=== PATIENT | female | born 1945 | race Caucasian/White ===

== ENCOUNTER → 2016-04-28 | Outpatient (CLI) | payer MEDICARE, OTHER | LOC: WI 13:26 | PROVIDERS: ATTEND Family Medicine | DX: Z12.31 Encounter for screening mammogram for malignant neoplasm of breast (principal); M89.9 Disorder of bone, unspecified | CPT/HCPCS: 77080; G0202; 77067 ==

== ENCOUNTER 2017-07-29 12:23 | Emergency (ER) | payer MEDICARE, OTHER ==
[2017-07-29] MEDS ORDERED: DIPHENHYDRAMINE HCL 50 MG/ML VIAL IV ONE (13:28)
[2017-07-29] MEDS ORDERED: KETOROLAC TROMETHAMINE INJ/PF 30 MG/1 ML SDV IV ONE (13:28)
[2017-07-29] MEDS ORDERED: PROCHLORPERAZINE EDISYLATE INJ 10 MG/2 ML VIAL IV ONE (13:29)
--- NOTE | 2017-07-29 13:29 | ER Document Report ---
ED Cardiac <LDBRIGIDA - Last Filed: 07/29/17 14:56> - General Mode of Arrival: Ambulatory Information source: Patient TRAVEL OUTSIDE OF THE [place] IN LAST 30 DAYS: No <GHISLAINE CALLEJAS - Last Filed: 07/29/17 16:35> - General Chief Complaint: Chest Pain Stated Complaint: CHEST PAIN Time Seen by Provider: 07/29/17 13:07 Notes: Patient is a 71 year old female that presents to the emergency department today with complaints of chest pain which began yesterday at 1400. Patient states the pain comes and goes approximately every 30 minutes and when it begins it lasts for approximately around 15 minutes. Patient states the pain seems to radiate to her back and into the left side of her jaw. Patient states that the pain is both relieved and exacerbated with certain positions. Patient also complains of a headache and associated nausea. Patient denies shortness of breath. (GHISLAINE CALLEJAS) - Related Data Allergies/Adverse Reactions: iodine Allergy (Severe, Verified 07/29/17 13:26) Anaphylaxis cefprozil [From Cefzil] Allergy (Intermediate, Verified 07/29/17 13:26) Hives cyclobenzaprine [From Flexeril] Allergy (Intermediate, Verified 07/29/17 13:26) nitrofurantoin [From Macrodantin] Allergy (Intermediate, Verified 07/29/17 13:26 ) Skin Redness ciprofloxacin [From Cipro] Allergy (Mild, Verified 07/29/17 13:26) Migraine clindamycin Allergy (Verified 07/29/17 13:26) methocarbamol [From Robaxin] Allergy (Verified 07/29/17 13:26) Iodinated Contrast- Oral and IV Dye Adverse Reaction (Severe, Verified 07/29/17 13:26) Anaphylaxis povidone-iodine [From Betadine] Adverse Reaction (Severe, Verified 07/29/17 13: 26) Blisters soap [From Betadine] Adverse Reaction (Severe, Verified 07/29/17 13:26) Blisters erythromycin base Adverse Reaction (Intermediate, Verified 07/29/17 13:26) Hives Past Medical History - General Information source: Patient - Social History Smoking Status: Never Smoker Cigarette use (# per day): No Chew tobacco use (# tins/day): No Frequency of alcohol use: None Drug Abuse: None Lives with: Family Family History: Reviewed & Not Pertinent Patient has suicidal ideation: No Patient has homicidal ideation: No Pulmonary Medical History: Reports: Hx Asthma Neurological Medical History: Reports: Hx Migraine Renal/ Medical History: Denies: Hx Peritoneal Dialysis GI Medical History: Reports: Hx Gastroesophageal Reflux Disease Psychiatric Medical History: Reports: Hx Depression Past Surgical History: Reports: Hx Hysterectomy, Hx Orthopedic Surgery - back/7 screws R leg/R arm 12 screws <GHISLAINE CALLEJAS Filed: 07/29/17 16:35> Review of Systems - Review of Systems Constitutional: No symptoms reported EENT: No symptoms reported Cardiovascular: See HPI, Chest pain Respiratory: No symptoms reported Gastrointestinal: No symptoms reported Genitourinary: No symptoms reported Female Genitourinary: No symptoms reported Musculoskeletal: No symptoms reported Skin: No symptoms reported Hematologic/Lymphatic: No symptoms reported Neurological/Psychological: See HPI, Headaches <GHISLAINE CALLEJAS Filed: 07/29/17 16:35> Physical Exam - Vital signs Interpretation: Normal - General General appearance: Appears well, Alert - HEENT Head: Normocephalic, Atraumatic Eyes: Normal Pupils: PERRL Neck: Other - left posterior cervical musculature tenderness with palpation, left trapezius tenderness with palpation - Respiratory Respiratory status: No respiratory distress Chest status: Tender - left anterior chest wall tenderness mid-clavicle Breath sounds: Normal Chest palpation: Normal - Cardiovascular Rhythm: Regular Heart sounds: Normal auscultation Murmur: No - Abdominal Inspection: Normal Distension: No distension Bowel sounds: Normal Tenderness: Nontender Organomegaly: No organomegaly - Back Back: Tender - left medial scapula tenderness with palpation - Extremities General upper extremity: Normal inspection, Nontender, Normal color, Normal ROM , Normal temperature General lower extremity: Normal inspection, Nontender, Normal color, Normal ROM , Normal temperature, Normal weight bearing. No: Katlyn's sign - Neurological Neuro grossly intact: Yes Cognition: Normal Orientation: AAOx4 [place] Coma Scale Eye Opening: Spontaneous Geovany Coma Scale Verbal: Oriented [place] Coma Scale Motor: Obeys Commands [place] Coma Scale Total: 15 Speech: Normal Motor strength normal: LUE, RUE, LLE, RLE Sensory: Normal - Psychological Associated symptoms: Normal affect, Normal mood - Skin Skin Temperature: Warm Skin Moisture: Dry Skin Color: Normal <GHISLAINE CALLEJAS - Last Filed: 07/29/17 16:35> - Vital signs Vitals: Temp Pulse Resp BP Pulse Ox 98.8 F 97 18 155/76 H 94 07/29/17 12:50 07/29/17 12:50 07/29/17 12:50 07/29/17 12:50 07/29/17 12:50 Course - Laboratory Result Diagrams: 07/29/17 13:04 07/29/17 13:04 - Diagnostic Test Radiology reviewed: Image reviewed, Reports reviewed - Mild bibasilar atelectasis - EKG Interpretation by Id EKG shows normal: Sinus rhythm, [place], Intervals, QRS Complexes. abnormal: ST-T Waves - Nonspecific anterolateral T abnormalities Rate: Normal - 99 Rhythm: NSR <BRIGIDA JAFFE - Last Filed: 07/29/17 14:56> - Laboratory Result Diagrams: 07/29/17 13:04 07/29/17 13:04 <GHISLIANE CALLEJAS - Last Filed: 07/29/17 16:35> - Vital Signs Vital signs: Temp Pulse Resp BP Pulse Ox 98.8 F 97 10 L 144/74 H 95 07/29/17 12:50 07/29/17 12:50 07/29/17 14:01 07/29/17 14:01 07/29/17 15:00 - Laboratory Laboratory results interpreted by co: 07/29/17 07/29/17 07/29/17 13:04 13:04 14:22 RDW 14.1 H Glucose 141 H Urine Urobilinogen 2.0 H Discharge <BRIGIDA JAFFE - Last Filed: 07/29/17 14:56> <GHISLAINE CALLEJAS - Last Filed: 07/29/17 16:35> - Discharge Clinical Impression: Anterior chest wall pain Muscle strain of left scapular region Qualifiers: Encounter type: initial encounter Qualified Code(s): S46.912A - Strain of unspecified muscle, fascia and tendon at shoulder and upper arm level, left arm , initial encounter Condition: Stable Disposition: HOME, SELF-CARE Additional Instructions: Chest Wall Pain: Your chest pain has been diagnosed as coming from the chest wall. This is often caused by straining the muscles or joints in the chest during physical activity, direct trauma, coughing, or vigorous vomiting. Occasionally, no cause can be found. Rest from strenuous physical activity. This kind of chest pain is usually made worse by movement of the chest. Depending on the symptoms, we may prescribe medicine for pain, muscle relaxation, and antiinflammatory effects. If the pain is new, and seems to be due to muscle strain, cold packs can help. Otherwise, apply gentle warmth to the painful area for 15 minutes every hour or two. You should contact the doctor immediately if things change. Further evaluation is needed if you develop a fever or cough, if the nature of the pain changes, or if you become short of breath. Your EKG, chest x-ray, lab work and heart muscle enzymes were unremarkable. Your exam suggests that your discomfort is coming from the muscles around her left scapula, left shoulder neck and left anterior chest. You should continue taking your regular medications and rest over the next few days. Follow-up with your primary care provider if not improving. RETURN TO THE EMERGENCY ROOM IF ANY NEW OR WORSENING SYMPTOMS. Referrals: YARED HAGER MD [Primary Care Provider] - Follow up as needed Scribe Attestation: 07/29/17 14:07 I personally performed the services described in the documentation, reviewed and edited the documentation which was dictated to the scribe in my presence, and it accurately records my words and actions. (BRIGIDA JAFFE) Scribe Documentation - Scribe Written by Cayla:: Cayla Alva, 07/29/2017 1634 acting as scribe for :: Ld <GHISLAINE CALLEJAS - Last Filed: 07/29/17 16:35>
[2017-07-29 14:12] LABS: ABSOLUTE BASOPHILS # (AUTO) 0.1 10^3/uL (0.0-0.2); ABSOLUTE EOSINOPHILS # (AUTO) 0.3 10^3/uL (0.0-0.6); ABSOLUTE LYMPHOCYTES (AUTO) 2.5 10^3/uL (0.5-4.7); ABSOLUTE MONOCYTES (AUTO) 0.6 10^3/uL (0.1-1.4); ABSOLUTE NEUT (AUTO) 4.3 10^3/uL (1.7-8.2); BASOPHILS % (AUTO) 0.7 % (0-2); EOSINOPHILS % (AUTO) 3.8 % (0-6); HEMATOCRIT 41.3 % (36.0-47.0); HEMOGLOBIN 13.9 g/dL (12.0-15.5); LYMPHOCYTES % (AUTO) 32.2 % (13-45); MEAN CORPUSCULAR HEMOGLOBIN 32.6 pg (27.0-33.4); MEAN CORPUSCULAR HGB CONC 33.7 g/dL (32.0-36.0); MEAN CORPUSCULAR VOLUME 97 fl (80-97); MONOCYTES % (AUTO) 7.2 % (3-13); PLATELET COUNT 258 10^3/uL (150-450); RED BLOOD COUNT 4.28 10^6/uL (3.72-5.28); RED CELL DISTRIBUTION WIDTH 14.1 % (11.5-14.0); SEGMENTED NEUTROPHILS % (AUTO) 56.1 % (42-78); TOTAL CELLS COUNTED % (AUTO) 100 %; WHITE BLOOD COUNT 7.6 10^3/uL (4.0-10.5)
[2017-07-29 14:21] LABS: ALANINE AMINOTRANSFERASE 29 U/L (9-52); ALBUMIN 4.3 g/dL (3.5-5.0); ALKALINE PHOSPHATASE 67 U/L (38-126); ANION GAP 11 (5-19); ASPARTATE AMINO TRANSFERASE 30 U/L (14-36); BILIRUBIN,DIRECT 0.3 mg/dL (0.0-0.4); BILIRUBIN,TOTAL 0.3 mg/dL (0.2-1.3); BLOOD UREA NITROGEN 12 mg/dL (7-20); CALCIUM 9.3 mg/dL (8.4-10.2); CARBON DIOXIDE 29 mmol/L (22-30); CHLORIDE 105 mmol/L (98-107); CREATINE KINASE 92 U/L (30-135); GLUCOSE 141 mg/dL (75-110); POTASSIUM 3.6 mmol/L (3.6-5.0); SODIUM 144.6 mmol/L (137-145); TOTAL PROTEIN 7.3 g/dL (6.3-8.2)
--- NOTE | 2017-07-29 14:22 | RADIOLOGY REPORT (SQ) ---
EXAM DESCRIPTION: CHEST SINGLE VIEW COMPLETED DATE/TIME: 07/29/2017 2:14 pm REASON FOR STUDY: Chest pain COMPARISON: None. EXAM PARAMETERS: NUMBER OF VIEWS: One view. TECHNIQUE: Single frontal radiographic view of the chest acquired. RADIATION DOSE: NA LIMITATIONS: None. FINDINGS: LUNGS AND PLEURA: No opacities, masses or pneumothorax. No pleural effusion. MEDIASTINUM AND HILAR STRUCTURES: No masses. Contour normal. HEART AND VASCULAR STRUCTURES: Heart normal in size. Normal vasculature. BONES: No acute findings. HARDWARE: Spine stimulator. tubing overlying the neck chest and abdomen. Question shunt catheter. OTHER: No other significant finding. IMPRESSION: NO ACUTE RADIOGRAPHIC FINDING IN THE CHEST. TECHNICAL DOCUMENTATION: JOB ID: [id number] [employer]- All Rights Reserved Reading location - IP/workstation name: [email or web address]
[2017-07-29 14:49] LABS: APPEARANCE,URINE SLIGHTLY-CLOUDY; BILIRUBIN,URINE NEGATIVE (NEGATIVE); COLOR,URINE AMBER; GLUCOSE, URINE NEGATIVE (NEGATIVE); KETONES,URINE NEGATIVE (NEGATIVE); LEUKOCYTE ESTERASE,URINE NEGATIVE (NEGATIVE); NITRITE,URINE NEGATIVE (NEGATIVE); PROTEIN,URINE NEGATIVE (NEGATIVE); URINE SPECIFIC GRAVITY 1.024
[2017-07-29 15:21] VITALS: BP 144/74
--- NOTE | 2017-07-29 23:18 | EKG REPORT ---
SEVERITY:- ABNORMAL ECG - SINUS RHYTHM NONSPECIFIC T ABNORMALITIES, ANT-LAT LEADS : Confirmed by: Rocío Fam 29-Jul-2017 23:17:36
== END 2017-07-29 15:29 | disposition home or self-care (01) ==
LOC: EDBD 12:23 → ER 12:23
DX: S46.912A Strain of unspecified muscle, fascia and tendon at shoulder and upper arm level, left arm, initial encounter (principal); R07.89 Other chest pain; R51 Headache; R11.0 Nausea; X58.XXXA Exposure to other specified factors, initial encounter; Z88.3 Allergy status to other anti-infective agents; Z90.710 Acquired absence of both cervix and uterus
CPT/HCPCS: 93005; 99285; 96374; 96375; 36415; 82550; 85025; 80053; 81001; 84484; 71045; 93010; J1200; J1885; J0780

== ENCOUNTER 2019-08-31 13:53 | Emergency (ER) | payer MEDICARE, OTHER ==
--- NOTE | 2019-08-31 15:22 | ER Document Report ---
ED Medical Screen (RME) - General Chief Complaint: Abdominal Pain Stated Complaint: FLANK PAIN Time Seen by Provider: 08/31/19 15:12 Primary Care Provider: YARED HAGER MD [Primary Care Provider] - Follow up as needed Mode of Arrival: Wheelchair Information source: Patient Notes: 74-year-old female presented to ED for complaint of right-sided abdominal pain. She states the pain started about 6 AM. She is had some nausea but no vomiting. She is alert oriented respirations regular nonlabored speaking in full sentences. She does have a history of migraines asthma reflux she has had colonoscopies and endoscopies. She has a history of arthritis in multiple fractures. She states she has had orthopedic surgeries for fractures, gallbladder removed, hysterectomy, and multiple other surgeries. She does have some mild tenderness to the right lower and upper quadrant. She is morbidly obese 4 foot 11 and 86 kg. I have greeted and performed a rapid initial assessment of this patient. A comprehensive ED assessment and evaluation of the patient, analysis of test results and completion of medical decision making process will be conducted by an additional ED providers. TRAVEL OUTSIDE OF THE [place] IN LAST 30 DAYS: No - Related Data Allergies/Adverse Reactions: iodine Allergy (Severe, Verified 08/31/19 15:11) Anaphylaxis cefprozil [From Cefzil] Allergy (Intermediate, Verified 08/31/19 15:11) Hives cyclobenzaprine [From Flexeril] Allergy (Intermediate, Verified 08/31/19 15:11) nitrofurantoin [From Macrodantin] Allergy (Intermediate, Verified 08/31/19 15:11) Skin Redness ciprofloxacin [From Cipro] Allergy (Mild, Verified 08/31/19 15:11) Migraine clindamycin Allergy (Verified 08/31/19 15:11) methocarbamol [From Robaxin] Allergy (Verified 08/31/19 15:11) Iodinated Contrast Media Adverse Reaction (Severe, Verified 08/31/19 15:11) Anaphylaxis povidone-iodine [From Betadine] Adverse Reaction (Severe, Verified 08/31/19 15:11) Blisters soap [From Betadine] Adverse Reaction (Severe, Verified 08/31/19 15:11) Blisters erythromycin base Adverse Reaction (Intermediate, Verified 08/31/19 15:11) Hives tape Adverse Reaction (Uncoded 08/31/19 15:11) Home Medications: ranatadine. cymbalta. advair. folic acid. doxepin. clonozapam. methrotrexate. multivitamin. proair. maxalt. promethazine. miralax. ocycodone. primidone. tizanidine. prednisolone. dorzolamide. vitamin b. magnesium Past Medical History - Social History Chew tobacco use (# tins/day): No Frequency of alcohol use: None Drug Abuse: None Pulmonary Medical History: Reports: Hx Asthma Neurological Medical History: Reports: Hx Migraine Renal/ Medical History: Denies: Hx Peritoneal Dialysis GI Medical History: Reports: Hx Gastroesophageal Reflux Disease Psychiatric Medical History: Reports: Hx Depression Past Surgical History: Reports: Hx Hysterectomy, Hx Orthopedic Surgery - back/7 screws R leg/R arm 12 screws Physical Exam - Vital signs Vitals: Temp Pulse Resp BP Pulse Ox 98.2 F 98 18 188/111 H 95 08/31/19 14:05 08/31/19 14:05 08/31/19 14:05 08/31/19 14:05 08/31/19 14:05 Course - Vital Signs Vital signs: Temp Pulse Resp BP Pulse Ox 98.2 F 98 18 188/111 H 95 08/31/19 15:12 08/31/19 14:05 08/31/19 14:05 08/31/19 14:05 08/31/19 14:05 Doctor's Discharge - Discharge Referrals: YARED HAGER MD [Primary Care Provider] - Follow up as needed
[2019-08-31 16:01] LABS: ABSOLUTE BASOPHILS # (AUTO) 0.1 10^3/uL (0.0-0.2); ABSOLUTE LYMPHOCYTES (AUTO) 1.9 10^3/uL (0.5-4.7); ABSOLUTE MONOCYTES (AUTO) 0.8 10^3/uL (0.1-1.4); ABSOLUTE NEUT (AUTO) 11.8 10^3/uL (1.7-8.2); BASOPHILS % (AUTO) 0.9 % (0-2); HEMATOCRIT 46.9 % (36.0-47.0); HEMOGLOBIN 15.9 g/dL (12.0-15.5); LYMPHOCYTES % (AUTO) 12.9 % (13-45); MEAN CORPUSCULAR HEMOGLOBIN 32.4 pg (27.0-33.4); MEAN CORPUSCULAR VOLUME 95 fl (80-97); MONOCYTES % (AUTO) 5.7 % (3-13); PLATELET COUNT 297 10^3/uL (150-450); RED BLOOD COUNT 4.92 10^6/uL (3.72-5.28); RED CELL DISTRIBUTION WIDTH 14.3 % (11.5-14.0); SEGMENTED NEUTROPHILS % (AUTO) 80.5 % (42-78); TOTAL CELLS COUNTED % (AUTO) 100 %; WHITE BLOOD COUNT 14.7 10^3/uL (4.0-10.5)
[2019-08-31 16:10] LABS: APPEARANCE,URINE SLIGHTLY-CLOUDY; BILIRUBIN,URINE NEGATIVE (NEGATIVE); COLOR,URINE YELLOW; GLUCOSE, URINE NEGATIVE (NEGATIVE); KETONES,URINE TRACE mg/dL (NEGATIVE); LEUKOCYTE ESTERASE,URINE NEGATIVE (NEGATIVE); NITRITE,URINE NEGATIVE (NEGATIVE); PROTEIN,URINE 30 mg/dL (NEGATIVE); URINE SPECIFIC GRAVITY 1.016; UROBILINOGEN,URINE NEGATIVE mg/dL (<2.0)
--- NOTE | 2019-08-31 16:12 | RADIOLOGY REPORT (SQ) ---
EXAM DESCRIPTION: CT ABD/PELVIS NO ORAL OR IV IMAGES COMPLETED DATE/TIME: 08/31/2019 3:56 pm REASON FOR STUDY: Right flank pain COMPARISON: None. TECHNIQUE: CT scan of the abdomen and pelvis performed without intravenous or oral contrast. Images reviewed with lung, soft tissue, and bone windows. Reconstructed coronal and sagittal MPR images revi ewed. All images stored on PACS. All CT scanners at this facility use dose modulation, iterative reconstruction, and/or weight based d osing when appropriate to reduce radiation dose to as low as reasonably achievable (ALARA). [facility]: Dose Right [facility]: CareDose [facility]: Dose Right [facility]: Teradose 4D [facility]: Smart [employer] RADIATION DOSE: CT Rad equipment meets quality standard of care and radiation dose reduction techniq ues were employed. CTDIvol: 15.9 mGy. DLP: 934 mGy-cm.mGy. LIMITATIONS: None. FINDINGS: LOWER CHEST: No significant findings. No nodules or infiltrates. NON-CONTRASTED LIVER, SPLEEN, ADRENALS: Fatty infiltration of the liver. Evaluation limited by lack of IV contrast. No identified significant masses. PANCREAS: No masses. No peripancreatic inflammatory changes. GALLBLADDER: Surgically absent. RIGHT KIDNEY AND URETER: No cysts identified. 7 mm calcified stone at the right UVJ with moderate -se sheyla hydronephrosis - hydroureter. LEFT KIDNEY AND URETER: No cysts identified. No solid masses. No calcified stones. No hydronephrosis or hydroureter. AORTA AND RETROPERITONEUM: No aneurysm. No retroperitoneal masses or adenopathy. BOWEL AND PERITONEAL CAVITY: No obvious masses or inflammatory changes. No free fluid. APPENDIX: Normal. PELVIS, BLADDER, AND ABDOMINAL WALL:Prior hysterectomy No free fluid. Unremarkable bladder. BONES: No acute findings. OTHER: No other significant finding. IMPRESSION: 7 mm calcified stone at the right UVJ with moderate -severe hydronephrosis - hydroureter . TECHNICAL DOCUMENTATION: JOB ID: [id number] Quality ID # [id number]: Final reports with documentation of one or more dose reduction techniques (e.g., Au tomated exposure control, adjustment of the mA and/or kV according to patient size, use of iterative reconstruction technique) 2010 [employer]- All Rights Reserved Reading location - IP/workstation name: [email or web address]
[2019-08-31 16:19] LABS: ALKALINE PHOSPHATASE 88 U/L (38-126); ANION GAP 11 (5-19); ASPARTATE AMINO TRANSFERASE 34 U/L (14-36); BILIRUBIN,DIRECT 0.2 mg/dL (0.0-0.4); BILIRUBIN,TOTAL 0.6 mg/dL (0.2-1.3); BLOOD UREA NITROGEN 13 mg/dL (7-20); CALCIUM 9.6 mg/dL (8.4-10.2); CARBON DIOXIDE 26 mmol/L (22-30); CHLORIDE 101 mmol/L (98-107); GLUCOSE 134 mg/dL (75-110); POTASSIUM 4.3 mmol/L (3.6-5.0); TOTAL PROTEIN 8.1 g/dL (6.3-8.2)
[2019-08-31] MEDS ORDERED: ONDANSETRON HCL INJ/PF 4 MG/2 ML SDV IV ONE (18:45)
[2019-08-31] MEDS ORDERED: MORPHINE SULFATE 10 MG/ML INJ IV ONE (18:45)
[2019-08-31] MEDS ORDERED: NORMAL SALINE 500 ML IV ONE (18:45)
--- NOTE | 2019-08-31 18:52 | ER Document Report ---
ED General - General Chief Complaint: Abdominal Pain Stated Complaint: FLANK PAIN Time Seen by Provider: 08/31/19 15:12 Primary Care Provider: YARED HAGER MD [Primary Care Provider] - Follow up as needed Mode of Arrival: Wheelchair TRAVEL OUTSIDE OF THE [place] IN LAST 30 DAYS: No - HPI Notes: Chief complaint: Right lower quadrant abdominal pain and right flank pain History of present illness: 74-year-old female with no known prior history of renal stones says she is seen her primary care doctor several times recently for vague bladder irritative symptoms and was being treated intermittently with some Pyridium although they had not diagnosed an infection. Overnight she has developed severe pain in the right lower quadrant of the abdomen radiating to her right flank and describes this as coming in "waves". She has some Percocet she had received for management of chronic musculoskeletal back pain and says she took 1 of these with partial relief her discomfort. She denies fever chill s. She denies any gross hematuria. Presently she is having a recurrence of the pain and describes this is 8/10 in intensity. Patient is never had an appendectomy. She has had a previous cholecystectomy. - Related Data Allergies/Adverse Reactions: iodine Allergy (Severe, Verified 08/31/19 15:11) Anaphylaxis cefprozil [From Cefzil] Allergy (Intermediate, Verified 08/31/19 15:11) Hives cyclobenzaprine [From Flexeril] Allergy (Intermediate, Verified 08/31/19 15:11) nitrofurantoin [From Macrodantin] Allergy (Intermediate, Verified 08/31/19 15:11) Skin Redness ciprofloxacin [From Cipro] Allergy (Mild, Verified 08/31/19 15:11) Migraine clindamycin Allergy (Verified 08/31/19 15:11) methocarbamol [From Robaxin] Allergy (Verified 08/31/19 15:11) Iodinated Contrast Media Adverse Reaction (Severe, Verified 08/31/19 15:11) Anaphylaxis povidone-iodine [From Betadine] Adverse Reaction (Severe, Verified 08/31/19 15:11) Blisters soap [From Betadine] Adverse Reaction (Severe, Verified 08/31/19 15:11) Blisters erythromycin base Adverse Reaction (Intermediate, Verified 08/31/19 15:11) Hives tape Adverse Reaction (Uncoded 08/31/19 15:11) Home Medications: ranatadine. cymbalta. advair. folic acid. doxepin. c lonozapam. methrotrexate. multivitamin. proair. maxalt. promethazine. miralax. ocycodone. primidone. tizanidine. prednisolone. dorzolamide. vitamin b. magnesium Past Medical History - General Information source: Patient, Relative, [facility], 1928–1983 Records - Social History Smoking Status: Never Smoker Chew tobacco use (# tins/day): No Frequency of alcohol use: Occasional Drug Abuse: None Family History: Reviewed & Not Pertinent Patient has homicidal ideation: No - Past Medical History Cardiac Medical History: Reports: None Pulmonary Medical History: Reports: Hx Asthma Neurological Medical History: Reports: Hx Migraine Endocrine Medical History: Reports: Other - History of reactive hypoglycemia Renal/ Medical History: Denies: Hx Peritoneal Dialysis GI Medical History: Reports: Hx Gastroesophageal Reflux Disease Musculoskeletal Medical History: Reports Other - Chronic low back pain. Patient takes tizanidine and Percocet prescribed by Psychiatric Medical History: Reports: Hx Depression Past Surgical History: Reports: Hx Cholecystectomy, Hx Hysterectomy, Hx Orthopedic Surgery - back/7 screws R leg/R arm 12 screws Review of Systems - Review of Systems Notes: Constitutional: Negative for fever. HENT: Negative for sore throat. Eyes: Negative for visual changes. Cardiovascular: Negative for chest pain. Respiratory: Negative for shortness of breath. Gastrointestinal: As per HPI. Genitourinary: As per HPI. Musculoskeletal: As per HPI. Skin: Negative for rash. Neurological: Negative for headaches, weakness or numbness. 10 point ROS negative except as marked above and in HPI. Physical Exam - Vital signs Vitals: Temp Pulse Resp BP Pulse Ox 98.2 F 98 18 188/111 H 95 08/31/19 14:05 08/31/19 14:05 08/31/19 14:05 08/31/19 14:05 08/31/19 14:05 - Notes Notes: GENERAL: Elderly female who appears mildly uncomfortable and slightly restless. SKIN: Good turgor no rashes. HEAD: Normocephalic atraumatic. EYES: PERRLA. EOMI. Conjunctivae and sclerae clear. EARS: CANALS AND TMS CLEAR. NOSE: CLEAR. MOUTH: Moist mucosa. Good dentition. No stridor or edema. No drooling. NECK: Supple. No masses or thyromegaly. No adenopathy. Carotids 2+ without bruits. No JVD. BACK: Symmetrical without tenderness. CHEST: Respirations unlabored. Breath sounds clear and symmetrical. HEART: Regular rhythm. No murmur gallop or rub. ABDOMEN: Moderately obese. Soft nontender without masses, organomegaly or rebou nd. Bowel sounds normally active. No bruits. GENITALIA: Deferred. EXTREMITIES: Moderate degenerative changes of inter-phalangeal joints of both hands no edema. No calf tenderness. Cap refill less than 1.5 seconds. Dorsalis pedis and posterior tibial pulses 3+ and symmetrical. NEUROLOGICAL: GCS 15. Alert and oriented x3. Normal gait. Fluent speech. Cranial nerves II through XII intact. Sensorimotor and cerebellar normal. Normal tone. PSYCHIATRIC: Appropriate affect. Course - Re-evaluation Re-evalutation: 08/31/19 20:48 Patient received IV normal saline and IV morphine and Zofran. Symptoms are controlled. We identified a 7 mm stone at the right UVJ with partial obstruction of the ureter. She appears stable for outpatient follow-up with urology within the next 24 hours. I explained to her that there is relatively large stone but given the fact that it has progressed down the ureter as far as her has are still possibility she may pass this spontaneously. Findings, clinical impression and plan of treatment have been discussed with patient/family. Understanding of current findings and recommendations has been acknowledged by them and there is agreement regarding disposition and follow-up. - Vital Signs Vital signs: Temp Pulse Resp BP Pulse Ox 98.8 F 96 16 167/79 H 97 08/31/19 19:11 08/31/19 19:11 08/31/19 19:11 08/31/19 19:11 08/31/19 19:11 - Laboratory Result Diagrams: 08/31/19 15:26 08/31/19 15:26 Laboratory results interpreted by me: 08/31/19 08/31/19 08/31/19 15:26 15:26 15:26 WBC 14.7 H Hgb 15.9 H RDW 14.3 H Lymph % (Auto) 12.9 L Absolute Neuts (auto) 11.8 H Seg Neutrophils % 80.5 H Est GFR ( Amer) 53 L Est GFR (MDRD) Non-Af 44 L Glucose 134 H Urine Protein 30 H Urine Ketones TRACE H - Diagnostic Test Radiology reviewed: Reports reviewed - Noncontrast CT abdomen/pelvis per radiologist: 7 mm stone right UVJ with hydronephrosis. Discharge - Discharge Clinical Impression: Ureterolithiasis with renal colic Condition: Stable Disposition: HOME, SELF-CARE Additional Instructions: Continue your usual pain medications at home. Additional prescriptions have been provided. Increase oral fluids. Follow-up with referral urologist this week. Return here as needed for new or worsening symptoms: Pain that is worsening or unimproved Uncontrolled vomiting High fever or shaking chills Overall worsening Prescriptions: Tamsulosin HCl [Flomax 0.4 mg Cap.sr] 0.4 mg PO DAILY #7 cap.sr.24h Naproxen 500 mg PO BID PRN 7 Days #14 tablet PRN Reason: Sulfamethoxazole/Trimethoprim [Septra-Ds 800-160 mg Tablet] 1 tab PO BID 10 Days #20 tablet Referrals: YRAED HAGER MD [Primary Care Provider] - Follow up as needed GERHARD ZAMARRIPA MD [NO LOCAL MD] - Follow up as needed
[2019-08-31] MEDS ORDERED: ONDANSETRON ODT 4 MG TAB (6 TAB/ER DISP) PO PRN (20:51)
[2019-08-31 21:58] VITALS: BP 179/79
== END 2019-08-31 21:58 | disposition home or self-care (01) ==
LOC: ER 13:53
DX: N13.2 Hydronephrosis with renal and ureteral calculous obstruction (principal); R10.31 Right lower quadrant pain; R10.9 Unspecified abdominal pain; J45.909 Unspecified asthma, uncomplicated; F32.9 Major depressive disorder, single episode, unspecified; M54.5 Low back pain; G89.29 Other chronic pain; G43.909 Migraine, unspecified, not intractable, without status migrainosus; Z79.891 Long term (current) use of opiate analgesic; Z79.52 Long term (current) use of systemic steroids; Z79.899 Other long term (current) drug therapy; Z90.49 Acquired absence of other specified parts of digestive tract; Z88.1 Allergy status to other antibiotic agents; Z88.8 Allergy status to other drugs, medicaments and biological substances; Z87.892 Personal history of anaphylaxis; Z91.041 Radiographic dye allergy status
CPT/HCPCS: 99284; 96361; 96374; 96375; 36415; 85025; 80053; 81001; 74176; J2270; J2405; J7040; A9270